=== PATIENT | female | born 2000 | race Caucasian/White ===

== ENCOUNTER 2019-07-16 17:31 | Emergency (ER) | payer SELFPAY ==
--- NOTE | 2019-07-16 18:01 | ED_ITS ---
HPI - URI/Sore Throat General: Chief Complaint: Upper Respiratory Infection Stated Complaint: FEVER, COUGH Time Seen by Provider: 07/16/19 18:01 Source: patient Mode of arrival: ambulatory Limitations: no limitations History of Present Illness: HPI Narrative: Patient comes in for fever and cough. Patient reports that she started getting ill last night. Patient was exposed to influenza A last week at her sister's house. Patient appears mildly unwell. Patient took some DayQuil at 2:00 this afternoon. Patient's 2 young children also started to exhibit symptoms with fever and cough. Associated symptoms: Reports fever(s) Review of Systems General: Reports: 10 or more systems reviewed and unremarkable except in HPI and below Const: Reports: fever Resp: Reports: non-productive cough PFSH ED PFSH: Social History Smoking and tobacco status: current every day smoker Physical Exam Const: COMMON NORMALS: no apparent distress and oriented x3 GENERAL APPEARANCE: cooperative HENMT: COMMON NORMALS: normocephalic, external ears normal, EAC's normal and TM's normal bilaterally HEAD & SCALP: normal to inspection and normocephalic FACE & SINUS: normal facial exam NOSE: nasal discharge clear (mild) GENERAL EAR: hearing not grossly impaired EXTERNAL EAR: Yes external ears normal EXTERNAL AUDITORY CANAL: EAC's normal TYMPANIC MEMBRANE: TM's normal bilaterally MOUTH: oral and palatal mucosa normal THROAT: posterior oropharynx abnormal erythema Eye: COMMON NORMALS: PERRL and EOMs intact bilaterally PUPIL: Yes PERRL Neck/C-Spine: COMMON NORMALS: full ROM and no lymphadenopathy Lymph: LYMPHATIC: no lymphedema noted Chest: COMMONS NORMALS: inspection of chest normal and palpation of chest normal Resp: COMMON NORMALS: normal respiratory effort and clear to auscultation bilaterally AUSCULTATION: clear to auscultation bilaterally Cardio: COMMON NORMALS: regular rate and regular rhythm RATE: regular rate RHYTHM: regular rhythm GI: COMMON NORMALS: normal to inspection, nondistended, normoactive bowel sounds and non-tender : COMMON NORMALS: Yes no CVA tenderness BLADDER/KIDNEY EXAM: Yes no CVA tenderness Back/Pelvis: COMMON NORMALS: no CVA tenderness and thoracic and lumbar spine normal to inspection Extremity: COMMON NORMALS: normal to inspection GENERAL: No edema Neuro: COMMON NORMALS: oriented x3, moves all extremities and no focal motor deficits Psych: COMMON NORMALS: mental status grossly normal and cooperative Skin: COMMON NORMALS: no rashes or lesions noted GENERAL SKIN EXAM: no rashes or lesions noted Course Vital Signs: Vital signs: Vital Signs Temperature 101.5 F H 07/16/19 18:05 Pulse Rate 130 H 07/16/19 18:05 Respiratory Rate 20 H 07/16/19 18:05 Pulse Oximetry 99 07/16/19 18:05 MDM - URI/Sore Throat MDM Narrative: Medical decision making narrative: Patient comes in today for cough and fever. Patient reports symptoms since last night. Patient was exposed to influenza a through the family. Patient appears mildly unwell. Exam notes clear lung sounds, nasal mucosa swollen with clear drainage, posterior pharynx slightly erythematous. Vital signs are notable for elevated pulse and fever. Differential diagnosis influenza, upper respiratory infection, pneumonia, viral syndrome. Influenza test was positive for type A. Reviewed exam with patient with recommendations for treatment and follow-up. Patient reports understanding. Lab Data: Labs: Lab Results 07/16/19 Range/Units 18:11 Influenza Type A A g Positive H (Negative) POC Influenza B Ag Negative (Negative) Discharge Plan Discharge Patient Disposition: Home, Self-Care Clinical Impression: Influenza Condition: Stable Prescriptions: New oseltamivir 75 mg capsule 75 mg PO BID 5 Days Qty: 10 RF: 0 Discharge Orders: Discharge Order (Routine); Ordered 07/16/19 Ordered By: Edvin Cordova Referrals: Charlotte Braun FNP-C [Family Provider] - Discharge Diet: Usual diet Discharge Activity: Increase activity as tolerated Patient Instructions: Influenza (ED) Activity Restrictions/Additional Instructions: Encourage fluids acetaminophen and ibuprofen for pain and fever Follow-up with primary care as needed Return to ER for difficulty breathing or new concerns Coding Level of Care Code ED [employer] Salesperson for Chg Fwd Exam Comprehensive
[2019-07-16 18:05] VITALS: PULSE 130; RESP 20; TEMP 38.6; O2SAT 99; BMI 23.3
[2019-07-16] MEDS: ibuprofen 200 mg Tablet 400 MG PO (18:34)
[2019-07-16 19:12] LABS: Influenza A by IFA Positive (Negative); Influenza B by IFA Negative (Negative)
[2019-07-16 19:22] LABS: Add Urine Microscopic? NO
[2019-07-16 19:26] LABS: Bilirubin Urine Neg (NEGATIVE); Blood Urine Neg (Negative); Glucose Urine UA Norm (Normal); Ketones Urine Negative (Negative); Leukocyte Esterase Urine Negative (Negative); Nitrate Urine Negative (Negative); Protein Urine Neg (Negative); Specific Gravity, Urine 1.005 (1.005-1.030); Urine Appearance Clear (CLEAR); Urine Color Straw (Yellow); Urobilinogen Urine Norm (Negative); pH Urine 5 (5-7)
[2019-07-16 19:49] VITALS: BP 118/64; PULSE 72; RESP 17; TEMP 37.3; O2SAT 96
== END 2019-07-16 19:50 | disposition home or self-care (01) ==
PROVIDERS: Emergency Provider Nurse Practitioner Family; Family Provider Nurse Practitioner Family
DX: J09.X2 Influenza due to identified novel influenza A virus with other respiratory manifestations (principal); F17.200 Nicotine dependence, unspecified, uncomplicated
CPT/HCPCS: 12345; 81003; 87804; 99281; 99282; 99283; A9270

== ENCOUNTER → 2020-01-05 16:02 | Outpatient (BNVA) | payer SELFPAY | PROVIDERS: Family Provider Nurse Practitioner Family; Visit Provider Nurse Practitioner | DX: F41.8 Other specified anxiety disorders (principal) | CPT/HCPCS: 80053; 84443; 85025 ==

== ENCOUNTER 2020-09-13 10:00 | Emergency (ER) | payer SELFPAY ==
[2020-09-13 10:01] VITALS: BP 124/92; PULSE 67; RESP 16; TEMP 36.2; O2SAT 100; BMI 23.3
[2020-09-13 10:06] VITALS: BP 124/92; PULSE 75; RESP 18; O2SAT 100
--- NOTE | 2020-09-13 10:09 | ED_ITS ---
HPI - Eye Problem General: Chief complaint: Eye Problems Stated complaint: eye pain Time Seen by Provider: 09/13/20 10:05 History of Present Illness: HPI Narrative: Patient reports 2 days ago she had an fly get in her left eye. Since then she has had discomfort to the left eye. Patient appears well. Patient appears in no acute distress. Minimal redness or drainage is noted from the left eye. Patient does not wear contacts. MD chief complaint: eye pain Onset (ago): day(s) Onset description: sudden Location: left eye Eye Symptoms: pain Place: home Mechanism: direct trauma Severity: moderate If Pain, Quality: aching Associated symptoms: Reports no associated symptoms Treatments Prior to Arrival: none Review of Systems General: Reports: 10 or more systems reviewed and unremarkable except in HPI and below Eyes: Reports: eye discomfort PFS ED PFSH: Medical History (Updated 09/13/20 @ 10:20 by TIMMY Douglas) Anxiety with depression Surgical History History of section Family History Other Cancer Denies family history of Bleeding disorder Social History Smoking and tobacco status: former smoker Second hand smoke exposure: No Smoking risk assessment/counseling performed?: No Alcohol intake: never Desire information about alcohol rehabilitation?: No Counseling given: No Desire information about substance/drug rehabilitation?: No Counseling given: No Adopted: Yes Caregiver/support person: No Lives independently: No Household members: children Housing: House Marital status: Single Number of children: 2 service: No Current occupational status: employed 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 History of recent travel: No Current gender identity: Female Female Reproductive History: Date of last menstrual period: 09/06/20 Physical Exam Const: COMMON NORMALS: no acute distress and patient oriented x3 GENERAL APPEARANCE: cooperative HENMT: COMMON NORMALS: normocephalic and Normal external nose present HEAD & SCALP: normal to inspection and normocephalic NOSE: Normal external nose present MOUTH: Normal oral and palatal mucosa present Eye: COMMON NORMALS: Equal, round and reactive pupils present and EOMs intact bilaterally PUPIL: Yes Equal, round and reactive pupils present OTHER: Under fluorescein stain patient has a small abrasion to the 3 o'clock position of the left eye outside the iris. No foreign body or other abnormality is noted. Neck/C-Spine: COMMON NORMALS: full ROM Chest: COMMONS NORMALS: normal inspection of the chest Resp: COMMON NORMALS: normal respiratory effort EFFORT & INSPECTION: Yes able to speak in complete sentences Cardio: COMMON NORMALS: regular rate and regular rhythm RATE: regular rate RHYTHM: regular rhythm GI: COMMON NORMALS: non-tender Back/Pelvis: COMMON NORMALS: thoracic and lumbar spine normal to inspection Extremity: COMMON NORMALS: normal to inspection Neuro: COMMON NORMALS: patient oriented x3 and moves all extremities Psych: COMMON NORMALS: mental status grossly normal and cooperative Skin: COMMON NORMALS: no rashes or lesions noted GENERAL SKIN EXAM: no rashes or lesions noted Course Vital Signs: Vital signs: Vital Signs Temperature 97.1 F L 09/13/20 10:01 Pulse Rate 75 09/13/20 10:06 Respiratory Rate 18 09/13/20 10:06 Blood Pressure 124/92 09/13/20 10:06 Pulse Oximetry 100 09/13/20 10:06 MDM - Eye Problem MDM Narrative: Medical decision making narrative: Patient comes in today with complaints of left eye discomfort. On exam we note a small superficial abrasion under fluorescein stain. Rest of the exam was normal. Differential diagnosis includes foreign body, corneal abrasion, conjunctivitis. Reviewed exam with patient with recommendations for follow-up or return to the ER. Patient reported understanding. Discharge Plan Discharge Patient Disposition: Home Clinical Impression: Abrasion, corneal Qualifiers: Encounter type: initial encounter Laterality: left Qualified Code(s): S05.02XA - Injury of conjunctiva and corneal abrasion without foreign body, left eye, initial encounter Condition: Stable Prescriptions: New Maxitrol 3.5mg/mL-10,000 unit/mL-0.1 % drops,suspension 1 drp ophthalmic (eye) QID 5 Days Qty: 5 RF: 0 Discharge Orders: Discharge ED (Routine); Ordered 09/13/20 Ordered By: Edvin Cordova Referrals: Charlotte Braun FNP-C [Family Provider] - Discharge Diet: Usual diet Discharge Activity: Increase activity as tolerated Patient Instructions: Corneal Abrasion (ED), Opioid Safety Activity Restrictions/Additional Instructions: Use eyedrops as directed. He will use antibiotic eyedrop 4 times a day for the next 5 to 7 days. You can use acetaminophen or ibuprofen for further pain relief. Drink plenty of water. Follow-up with primary care or eye healthcare facility administrator in 3 days for recheck. Return to the emergency department for new concerns. Coding Level of Care Code ED Health Education Teacher for Jose Galvan
[2020-09-13] MEDS: fluorescein 1 mg Strip EYE-LEFT (10:18)
[2020-09-13] MEDS: tetracaine 0.5% Op Soln 4 mL Btl 1 DROP EYE-LEFT (10:18)
[2020-09-13 10:30] VITALS: BP 124/92; PULSE 77; RESP 18; O2SAT 97
== END 2020-09-13 10:33 | disposition home or self-care (01) ==
PROVIDERS: Emergency Provider Nurse Practitioner Family; PCP Nurse Practitioner Family
DX: S05.02XA Injury of conjunctiva and corneal abrasion without foreign body, left eye, initial encounter (principal); X58.XXXA Exposure to other specified factors, initial encounter; Z87.891 Personal history of nicotine dependence
CPT/HCPCS: 99282

== ENCOUNTER → 2020-12-01 14:31 | Outpatient (BNVA) | payer OTHER, SELFPAY | PROVIDERS: PCP Nurse Practitioner Family; Visit Provider Nurse Practitioner Family | DX: Z20.822 Contact with and (suspected) exposure to COVID-19 (principal) | CPT/HCPCS: 87635 ==

== ENCOUNTER 2020-12-26 20:04 | Emergency (ER) | payer MEDICAID, SELFPAY ==
[2020-12-26 20:17] VITALS: BP 129/80; PULSE 108; RESP 16; TEMP 36.7; O2SAT 99; BMI 21.6
--- NOTE | 2020-12-26 20:29 | XRR_ITS ---
PROCEDURE INFORMATION: Exam: XR Chest Exam date and time: 12/26/2020 8:29 PM Age: 20 years old Clinical indication: Shortness of breath; Sternal or substernal pain; Additional info: SOB TECHNIQUE: Imaging protocol: XR of the chest. Views: 1 view. COMPARISON: CR Chest 1 [place] [id number] 03/10/2017 11:06 AM FINDINGS: Lungs: Unremarkable. No consolidation. Pleural spaces: Unremarkable. No pleural effusion. No pneumothorax. Heart/Mediastinum: Unremarkable. No cardiomegaly. Bones/joints: Unremarkable. XR/XR chest 1V portable [id number] IMPRESSION: No acute findings.
--- NOTE | 2020-12-26 20:29 | ECG_ITS ---
[facility] Test Date: 2020-12-26 Pat Name: Camille Theodore Department: Room: Gender: Female Body Straightener: : 2000 Requested By: Rajinder Espana Order Number: [id number] Joaquina MD: Nidhi Wasserman M.D. Measurements Intervals [place] Rate: 106 P: 80 [place]: 158 QRS: 53 QRSD: 90 T: 14 QT: 343 QTc: 457 Interpretive Statements SINUS TACHYCARDIA POSSIBLE LEFT ATRIAL ENLARGEMENT [-0.1mV P WAVE IN V1/V2] NONSPECIFIC ST & T-WAVE ABNORMALITY ABNORMAL RHYTHM ECG No previous ECG available for comparison Electronically Signed On 12-29-2020 9:07:36 CDT by Nidhi Wasserman M.D. [id number] f
[2020-12-26 23:53] LABS: Basophils # 0.1 10^3/uL (0.0-0.1); Basophils % 0.6 %; Eosinophils # 0.1 10^3/uL (0.0-0.8); Eosinophils % 1.1 %; Hematocrit 43.9 % (37.0-47.0); Hemoglobin 14.6 g/dL (11.5-15.3); Lymphocytes # 2.5 10^3/uL (0.8-4.8); Lymphocytes % 24.5 %; Mean Corpuscular HGB Conc 33.3 g/dL (30.0-36.0); Mean Corpuscular Hemoglobin 30.6 pg (28.0-34.0); Mean Platelet Volume 9.6 fL (7.4-10.4); Monocytes # 1.2 10^3/uL (0.2-0.9); Monocytes % 12.3 %; Neutrophils # 6.16 10^3/uL (1.8-7.7); Neutrophils % 61.3 %; Nucleated Red Blood Cells % 0 %; Platelet Count 367 10^3/cmm (130-400); Red Blood Count 4.77 10^6/uL (4.1-5.3); Red Cell Distribution Width 13.2 % (12.1-15.1); White Blood Count 10.1 10^3/uL (4.0-10.0)
--- NOTE | 2020-12-26 23:57 | ED_ITS ---
HPI - Chest Pain General: Chief Complaint: Chest Pain Stated Complaint: cp Time Seen by Provider: 12/26/20 23:53 History of Present Illness: HPI narrative: Patient states she has had some pain left side of her chest for years. That is still present and happens on and off. Then she had some pain center of her chest since last night hurts when she swallows. She denies any change in diet. Denies any shortness of breath nausea vomiting diarrhea. Patient had Covid about a month ago. Has not been sick this week. Has not tried any saaz-usz-pajofit medication for this. MD complaint: chest discomfort Onset (ago): day(s) Timing of current episode: episodic Prior episodes: Yes Associated symptoms: Reports abdominal pain; Deny dyspnea, fever(s), nausea or vomiting Review of Systems Const: Denies: fever(s), chills or body aches Eyes: Denies: change in vision or blurry vision ENMT: Denies: throat pain or nasal congestion Card: Reports: chest pain; Denies: dyspnea on exertion Resp: Denies: dyspnea, productive cough or non-productive cough GI: Reports: abdominal pain; Denies: nausea or vomiting Musc: Denies: extremity pain Skin/Breast: Denies: rash Neuro: Denies: headache(s) Psych: Denies: anxiety or depression Shashank/Lymph: Denies: easy bruising PFSH ED PFSH: Medical History (Updated 12/27/20 @ 00:42 by TIMMY Venegas) Anxiety with depression Surgical History History of section Family History Other Cancer Denies family history of Bleeding disorder Social History Smoking and tobacco status: former smoker Second hand smoke exposure: No Smoking risk assessment/counseling performed?: No Alcohol intake: never Desire information about alcohol rehabilitation?: No Counseling given: No Desire information about substance/drug rehabilitation?: No Counseling given: No Adopted: Yes Caregiver/support person: No Lives independently: No Household members: children Housing: House Marital status: Single Number of children: 2 service: No Current occupational status: employed 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 History of recent travel: No Current gender identity: Female Female Reproductive History: Date of last menstrual period: 09/06/20 Physical Exam Const: COMMON NORMALS: no acute distress, average body habitus and patient oriented x3 HENMT: COMMON NORMALS: normocephalic HEAD & SCALP: normal to inspection and normocephalic FACE & SINUS: normal facial exam Eye: COMMON NORMALS: conjunctivae normal GENERAL EYE: appearance normal, both eyes and all related structures CONJUNCTIVA: Yes conjunctivae normal Neck/C-Spine: COMMON NORMALS: no JVD Chest: COMMONS NORMALS: normal inspection of the chest Resp: COMMON NORMALS: normal respiratory effort and clear to auscultation bilaterally AUSCULTATION: clear to auscultation bilaterally Cardio: COMMON NORMALS: no JVD, regular rate and regular rhythm RATE: regular rate RHYTHM: regular rhythm GI: COMMON NORMALS: Normal to inspection, nondistended, normoactive bowel sounds present Extremity: COMMON NORMALS: normal to inspection and full ROM Neuro: COMMON NORMALS: patient oriented x3 Course Vital Signs: Vital signs: Vital Signs Temperature 98.1 F 12/26/20 20:17 Pulse Rate 106 H 12/27/20 00:51 Respiratory Rate 18 12/27/20 00:51 Blood Pressure 113/93 12/27/20 00:51 Pulse Oximetry 98 12/27/20 00:51 MDM - Chest Pain MDM Narrative: Medical decision making narrative: Labs shows UTI. GI cocktail was of benefit. Chest x-ray EKG was negative. Labs appear normal troponin was negative. Patient follow-up primary care provider in 7 days repeat UA. Lab Data: Labs: Lab Results 12/26/20 12/26/20 12/26/20 Range/Units 23:48 23:48 23:48 WBC 10.1 H (4.0-10.0) 10^3/ uL RBC 4.77 (4.1-5.3) 10^6/u L Hgb 14.6 (11.5-15.3) g/dL Hct 43.9 (37.0-47.0) % MCV 92.0 (81-99) fl MCH 30.6 (28.0-34.0) pg MCHC 33.3 (30.0-36.0) g/dL RDW 13.2 (12.1-15.1) % Plt Count 367 (130-400) 10^3/c mm MPV 9.6 (7.4-10.4) fL Neut % (Auto) 61.3 % Lymph % (Auto) 24.5 % Meagher % (Auto) 12.3 % Eos % (Auto) 1.1 % Baso % (Auto) 0.6 % Neut # (Auto) 6.16 (1.8-7.7) 10^3/u L Lymph # (Auto) 2.5 (0.8-4.8) 10^3/u L Meagher # (Auto) 1.2 H (0.2-0.9) 10^3/u L Eos # (Auto) 0.1 (0.0-0.8) 10^3/u L Baso # (Auto) 0.1 (0.0-0.1) 10^3/u L Nucleated RBC % (a uto) 0 % Nucleated RBCs # 0.0 /100WBC D-Dimer 0.16 (0-0.59) ug/mIFE U Sodium 139 (136-145) mmol/L Potassium 4.0 (3.5-5.1) mmol/L Chloride 102 (98-107) mmol/L Carbon Dioxide 24 (22-29) mmol/L Anion Gap 17.0 (5-19) BUN 17 (6-20) mg/dL Creatinine 0.7 (0.5-0.9) mg/dL GFR Calculation 104.6 (90-130) mL/min Glucose 82 (65-115) mg/dL Calculated Osmolal ity 289 (285-295) mOsm/k g Calcium 10.0 (8.5-10.5) mg/dL Total Bilirubin 0.4 (0.15-1.2) mg/dL AST 12 (0-32) U/L ALT < 5 (0-33) U/L Alkaline Phosphata se 91 (35-105) IU/L Troponin T Baselin e (0-10) ng/L NT-Pro-B Natriuret Pep 19 (0-125) pg/mL Total Protein 8.0 (6.6-8.7) g/dL Albumin 4.9 (3.5-5.2) g/dL Globulin 3.1 (1.3-4.6) g/dL Urine Color (Yellow) Urine Appearance (CLEAR) Urine pH (5-7) Ur Specific Gravit y (1.005-1.030) Urine Protein (Negative) Urine Glucose (UA) (Normal) Urine Ketones (Negative) Urine Blood (Negative) Urine Nitrate (Negative) Urine Bilirubin (Negative) Urine Urobilinogen (Negative) mg/dL Ur Leukocyte Cinthia ase (Negative) Urine RBC (0-2) /hpf Urine WBC (0-5) /hpf Ur Squamous Epith Cells (0-5) /hpf Amorphous Sediment Urine Bacteria (NONE) /hpf 12/26/20 12/27/20 Range/Units 23:48 00:09 WBC (4.0-10.0) 10^3/ uL RBC (4.1-5.3) 10^6/u L Hgb (11.5-15.3) g/dL Hct (37.0-47.0) % MCV (81-99) fl MCH (28.0-34.0) pg MCHC (30.0-36.0) g/dL RDW (12.1-15.1) % Plt Count (130-400) 10^3/c mm MPV (7.4-10.4) fL Neut % (Auto) % Lymph % (Auto) % Meagher % (Auto) % Eos % (Auto) % Baso % (Auto) % Neut # (Auto) (1.8-7.7) 10^3/u L Lymph # (Auto) (0.8-4.8) 10^3/u L Meagher # (Auto) (0.2-0.9) 10^3/u L Eos # (Auto) (0.0-0.8) 10^3/u L Baso # (Auto) (0.0-0.1) 10^3/u L Nucleated RBC % (a uto) % Nucleated RBCs # /100WBC D-Dimer (0-0.59) ug/mIFE U Sodium (136-145) mmol/L Potassium (3.5-5.1) mmol/L Chloride (98-107) mmol/L Carbon Dioxide (22-29) mmol/L Anion Gap (5-19) BUN (6-20) mg/dL Creatinine (0.5-0.9) mg/dL GFR Calculation (90-130) mL/min Glucose (65-115) mg/dL Calculated Osmolal ity (285-295) mOsm/k g Calcium (8.5-10.5) mg/dL Total Bilirubin (0.15-1.2) mg/dL AST (0-32) U/L ALT (0-33) U/L Alkaline Phosphata se (35-105) IU/L Troponin T Baselin e 6 (0-10) ng/L NT-Pro-B Natriuret Pep (0-125) pg/mL Total Protein (6.6-8.7) g/dL Albumin (3.5-5.2) g/dL Globulin (1.3-4.6) g/dL Urine Color Yellow (Yellow) Urine Appearance Hazy A (CLEAR) Urine pH 5 (5-7) Ur Specific Gravit y 1.020 (1.005-1.030) Urine Protein Trace (Negative) Urine Glucose (UA) Norm (Normal) Urine Ketones Negative (Negative) Urine Blood Neg (Negative) Urine Nitrate Positive H (Negative) Urine Bilirubin Neg (Negative) Urine Urobilinogen Norm (Negative) mg/dL Ur Leukocyte Cinthia ase 2+ H (Negative) Urine RBC 0-4 H (0-2) /hpf Urine WBC >100 H (0-5) /hpf Ur Squamous Epith Cells 0-4 H (0-5) /hpf Amorphous Sediment Not Reportable Urine Bacteria 4+ H (NONE) /hpf Discharge Plan Discharge Patient Disposition: Home Clinical Impression: Atypical chest pain, Heartburn UTI (urinary tract infection) Qualifiers: Urinary tract infection type: acute cystitis Hematuria presence: without hematuria Qualified Code(s): N30.00 - Acute cystitis without hematuria Condition: Stable Prescriptions: New Bactrim DS 800-160 mg tablet 1 tab PO BID 7 Days Qty: 14 RF: 0 Prilosec OTC 20 mg tablet,delayed release (DR/EC) 20 mg PO DAILY Qty: 20 RF: 0 Discharge Orders: Discharge ED (Routine); Ordered 12/27/20 Ordered By: Phu Donovan Discharge Diet: Usual diet Discharge Activity: Increase activity as tolerated Patient Instructions: Urinary Tract Infection in Women (ED) Activity Restrictions/Additional Instructions: Follow-up with medical provider as directed. Take medications as prescribed. Return to the ER or your medical provider if condition worsens. Please read and understand discharge instructions. If any questions ask please. Coding Level of Care Code ED Motion Picture Camera Lens Technician for Chg Fwd Exam Comprehensive
[2020-12-27 00:04] VITALS: BP 112/75; PULSE 95; O2SAT 100
[2020-12-27 00:10] LABS: Troponin(5th) Baseline 6 ng/L (0-10)
[2020-12-27] MEDS: lidocaine 2% viscous 15 ML, aluminum-mag hydrox-simethicon 30 ML, sucralfate oral liq 1 GM PO (00:14)
[2020-12-27 00:20] LABS: D Dimer 0.16 ug/mIFEU (0-0.59)
[2020-12-27 00:24] LABS: Alanine Aminotransferase < 5 U/L (0-33); Albumin Level 4.9 g/dL (3.5-5.2); Alkaline Phosphatase 91 IU/L (35-105); Aspartate Amino Transferase 12 U/L (0-32); Blood Urea Nitrogen 17 mg/dL (6-20); Carbon Dioxide 24 mmol/L (22-29); Chloride 102 mmol/L (98-107); Globulin 3.1 g/dL (1.3-4.6); Glomerular Filtration Rate 104.6 mL/min (90-130); Glucose 82 mg/dL (65-115); NT Pro B Type Natriuretic Pept 19 pg/mL (0-125); Osmolality Calculated 289 mOsm/kg (285-295); Sodium 139 mmol/L (136-145); Total Bilirubin 0.4 mg/dL (0.15-1.2)
[2020-12-27 00:32] LABS: Add Urine Microscopic? YES; Bilirubin Urine Neg (Negative); Blood Urine Neg (Negative); Glucose Urine UA Norm (Normal); Ketones Urine Negative (Negative); Leukocyte Esterase Urine 2+ (Negative); Nitrate Urine Positive (Negative); Protein Urine Trace (Negative); Urine Appearance Hazy (CLEAR); Urine Color Yellow (Yellow); Urobilinogen Urine Norm (Negative); pH Urine 5 (5-7)
[2020-12-27 00:33] LABS: Add Urine Culture? Yes; Bacteria Urine 4+ /hpf; RBC Urine 0-4 /hpf (0-2); Squamous Epithelial Cell Urine 0-4 /hpf (0-5); WBC Urine >100 /hpf (0-5)
[2020-12-27] MEDS: sulfamethoxazole-trimeth DS 160-800 mg Tablet 1 TAB PO (00:49)
[2020-12-27 00:51] VITALS: BP 113/93; PULSE 106; RESP 18; O2SAT 98
== END 2020-12-27 00:52 | disposition home or self-care (01) ==
PROVIDERS: Emergency Medicine; Emergency Provider Nurse Practitioner Family
DX: R07.89 Other chest pain (principal); R12 Heartburn; N30.00 Acute cystitis without hematuria; Z87.891 Personal history of nicotine dependence
CPT/HCPCS: 36415; 71045; 80053; 81001; 83880; 84484; 85025; 85378; 87077; 87086; 87186; 93005; 99283

== ENCOUNTER 2021-01-29 09:57 | Emergency (ER) | payer MEDICAID, SELFPAY ==
[2021-01-29 10:02] VITALS: BP 114/79; PULSE 71; RESP 18; TEMP 36.7; O2SAT 100; BMI 21.6
--- NOTE | 2021-01-29 10:25 | ECG_ITS ---
[facility] Test Date: 2021-01-29 Pat Name: Camille Theodore Department: Room: Gender: Female Developer Automatic: : 2000 Requested By: Renu Cali Order Number: [id number] Joaquina MD: Hubert Street M.D. Measurements Intervals [place] Rate: 68 P: 68 [place]: 160 QRS: 62 QRSD: 90 T: 44 QT: 374 QTc: 398 Interpretive Statements SINUS RHYTHM WITH SINUS ARRHYTHMIA Compared to ECG 12/26/2020 20:23:27 Sinus tachycardia no longer present T-wave abnormality no longer present Electronically Signed On 01-29-2021 23:23:[address] M.D. [id number]
--- NOTE | 2021-01-29 12:22 | XRR_ITS ---
PROCEDURE INFORMATION: Exam: XR Chest Exam date and time: 01/29/2021 12:22 PM Age: 20 years old Clinical indication: Pain; Chest pressure; Additional info: Cp TECHNIQUE: Imaging protocol: XR of the chest. Views: 1 view. COMPARISON: CR (CHEST, ) 12/26/2020 8:39 PM FINDINGS: Lungs: Unremarkable. No consolidation. Pleural spaces: Unremarkable. No pleural effusion. No pneumothorax. Heart/Mediastinum: Unremarkable. No cardiomegaly. Bones/joints: Unremarkable. XR/XR chest 1V portable [id number] IMPRESSION: No acute findings. Radiation Dose CTDIVOL = (mGy): DLP = (mGy-cm)
[2021-01-29 12:29] VITALS: BP 108/78; PULSE 78; RESP 16; O2SAT 99
--- NOTE | 2021-01-29 12:36 | W.ED.GENADLT ---
HPI - General Adult General: Chief complaint: General Medical Stated complaint: FEELS LIKE HEART NOT BEATING RIGHT Time Seen by Provider: 01/29/21 12:21 Source: patient Mode of arrival: ambulatory Limitations: no limitations History of Present Illness: HPI narrative: 20-year-old female states of last 3 to 4 days she been having episodes where she feels like her heart is skipping a beat. States it was worse overnight states that her heart rate just feels irregular to her. She denies any chest pain denies any shortness of breath denies any worsening improving factors. Associated symptoms: Reports palpitations; Deny dyspnea, headache(s), nausea, rash or vomiting Review of Systems Const: Denies: fever(s), chills, body aches or change in appetite Eyes: Denies: blurry vision or eye discomfort ENMT: Denies: throat pain or dental pain Card: Reports: palpitations and irregular heart rhythm Resp: Denies: dyspnea GI: Denies: abdominal pain, nausea, vomiting or diarrhea : Denies: dysuria Musc: Denies: neck pain or back pain Skin/Breast: Denies: rash Neuro: Denies: headache(s) Psych: Denies: depression Shashank/Lymph: Denies: easy bruising All/Imm: Denies: urticaria PFSH ED PFSH: Medical History (Updated 01/29/21 @ 13:00 by Rajinder Espana MD) Anxiety with depression Surgical History History of section Family History Other Cancer Denies family history of Bleeding disorder Social History Smoking and tobacco status: former smoker Second hand smoke exposure: No Smoking risk assessment/counseling performed?: No Alcohol intake: never Desire information about alcohol rehabilitation?: No Counseling given: No Desire information about substance/drug rehabilitation?: No Counseling given: No Adopted: Yes Caregiver/support person: No Lives independently: No Household members: children Housing: House Marital status: Single Number of children: 2 service: No Current occupational status: employed 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 History of recent travel: No Current gender identity: Female Female Reproductive History: Date of last menstrual period: 01/03/21 Physical Exam Const: COMMON NORMALS: no acute distress, patient oriented x3 and healthy appearing HENMT: COMMON NORMALS: normocephalic and atraumatic HEAD & SCALP: normocephalic and atraumatic Eye: COMMON NORMALS: Equal, round and reactive pupils present and EOMs intact bilaterally PUPIL: Yes Equal, round and reactive pupils present Neck/C-Spine: COMMON NORMALS: full ROM and supple Chest: COMMONS NORMALS: normal inspection of the chest and normal palpation of entire chest wall Resp: COMMON NORMALS: normal respiratory effort, No retractions, No use of accessory muscles and clear to auscultation bilaterally AUSCULTATION: clear to auscultation bilaterally Cardio: COMMON NORMALS: regular rate, regular rhythm and No murmurs present (Cardio) RATE: regular rate RHYTHM: regular rhythm GI: COMMON NORMALS: Normal to inspection, nondistended, normoactive bowel sounds present, Soft to palpation, non-tender and no masses PALPATION: Yes Soft to palpation Extremity: COMMON NORMALS: normal to inspection and full ROM Neuro: COMMON NORMALS: patient oriented x3, moves all extremities and no focal motor deficits Psych: COMMON NORMALS: mental status grossly normal, Normal thought process present and cooperative THOUGHT PROCESS: Normal thought process present Skin: COMMON NORMALS: no rashes or lesions noted and no wounds GENERAL SKIN EXAM: no rashes or lesions noted Course Vital Signs: Vital signs: Vital Signs Temperature 98.1 F 01/29/21 10:02 Pulse Rate 78 01/29/21 12:29 Respiratory Rate 16 01/29/21 12:29 Blood Pressure 108/78 01/29/21 12:29 Pulse Oximetry 99 01/29/21 12:29 MDM - General Adult MDM Narrative: Medical decision making narrative: Patient presents here with palpitations and is well-appearing here EKG and x-ray here are normal. We will set her up with follow-up she likely needs a heart monitor. EKG Data^: EKG 1: Attestation: I personally reviewed and interpreted this EKG as follows: EKG interpretation date: 01/29/21 EKG interpretation time: 10:10 Interpretation: nsr hr [address] or t wave abnormalities qrs 90 qtc 391 Discharge Plan Discharge Patient Disposition: Home Clinical Impression: Heart palpitations Condition: Stable Prescriptions: No Action Prilosec OTC 20 mg tablet,delayed release (DR/EC) 20 mg PO DAILY Qty: 20 RF: 0 Discharge Orders: Discharge ED (Routine); Ordered 01/29/21 Ordered By: Rajinder Espana Discharge Diet: Advance as tolerated Discharge Activity: Resume usual activity Patient Instructions: Heart Palpitations (ED) Coding Level of Care Code ED Technical Sales Associate for Jose Galvan
--- NOTE | 2021-01-31 11:39 | DCPLANNER ---
planning and analysis manager had message to speak with patient about getting established with a primary care physician. planning and analysis manager called patient, she stated that she did want help in getting a primary care physician. planning and analysis manager called ALEX Malik, spoke with Rosibel, gave clinic patients information. A follow up appointment is scheduled for , February 02, 2021 at 2:20 with PROGRAMMING DIRECTORNickolas. planning and analysis manager called patient and gave her the appointment information.
--- NOTE | 2021-02-10 13:21 | DCPLANNER ---
Patient had an appointment scheduled for 02.02.21 at the [facility] - patient did attend appointment.
== END 2021-01-29 13:24 | disposition home or self-care (01) ==
PROVIDERS: Emergency Provider Emergency Medicine
DX: R00.2 Palpitations (principal); Z87.891 Personal history of nicotine dependence
CPT/HCPCS: 71045; 93005; 99282

== ENCOUNTER → 2021-02-02 14:56 | Outpatient (BNVA) | payer MEDICAID, SELFPAY | PROVIDERS: PCP Nurse Practitioner; Visit Provider Nurse Practitioner | DX: R00.2 Palpitations (principal) | CPT/HCPCS: 84443 ==

== ENCOUNTER → 2021-04-03 15:09 | Outpatient (BNVA) | payer MEDICAID, SELFPAY | PROVIDERS: PCP Nurse Practitioner; Visit Provider Nurse Practitioner Family | DX: R51.9 Headache, unspecified (principal) | CPT/HCPCS: 36415; 80053; 84443; 85025 ==

== ENCOUNTER → 2023-04-29 09:47 | Outpatient (BNVA) | payer MEDICAID, SELFPAY | PROVIDERS: PCP Nurse Practitioner; Visit Provider Nurse Practitioner Women's Health | DX: Z32.00 Encounter for pregnancy test, result unknown (principal) | CPT/HCPCS: 80307; 81025; 84315; 84443; 85025; 86592; 86762; 86803; 86850; 86900; 87086; 87340; 87491; 87591; 87806 ==

== ENCOUNTER → 2023-04-30 15:35 | Outpatient (BNVA) | payer MEDICAID, SELFPAY | PROVIDERS: PCP Nurse Practitioner; Visit Provider Nurse Practitioner Women's Health | DX: Z34.90 Encounter for supervision of normal pregnancy, unspecified, unspecified trimester (principal) | CPT/HCPCS: 87491; 87591 ==

== ENCOUNTER → 2023-05-06 11:15 | Outpatient (BNVA) | payer MEDICAID, SELFPAY | PROVIDERS: PCP Nurse Practitioner; Visit Provider Obstetrics & Gynecology | DX: Z3A.25 25 weeks gestation of pregnancy (principal); O09.30 Supervision of pregnancy with insufficient antenatal care, unspecified trimester | CPT/HCPCS: 82950; 84315 ==

== ENCOUNTER → 2023-05-16 11:40 | Outpatient (BNVA) | payer MEDICAID, SELFPAY | PROVIDERS: PCP Nurse Practitioner; Visit Provider Nurse Practitioner Women's Health | DX: Z36.87 Encounter for antenatal screening for uncertain dates (principal) | CPT/HCPCS: 76805 ==

== ENCOUNTER → 2023-07-16 08:22 | Outpatient (BNVA) | payer MEDICAID, SELFPAY | PROVIDERS: PCP Nurse Practitioner; Visit Provider Obstetrics & Gynecology | DX: Z3A.25 25 weeks gestation of pregnancy (principal); Z34.82 Encounter for supervision of other normal pregnancy, second trimester | CPT/HCPCS: 84315; 87081 ==

== ENCOUNTER 2023-08-11 13:13 | Inpatient (IN) | payer MEDICAID, SELFPAY ==
[2023-08-11] VITALS (69 sets, daily range): BP systolic 90–236; BP diastolic 50–158; PULSE 68–131; TEMP 36.1–36.2; O2SAT 96–100; BMI 27.7
[2023-08-11 14:07] LABS: Basophils % 0.3 %; Eosinophils # 0.1 10^3/uL (0.0-0.8); Eosinophils % 0.4 %; Hematocrit 35.9 % (36-47); Lymphocytes # 1.9 10^3/uL (0.8-4.8); Lymphocytes % 13.8 %; Mean Corpuscular HGB Conc 34.3 g/dL (30-55); Mean Corpuscular Hemoglobin 30.8 pg (27-33); Mean Corpuscular Volume 89.8 fl (85-98); Mean Platelet Volume 10.4 fL (7.4-10.4); Monocytes # 0.9 10^3/uL (0.2-0.9); Monocytes % 6.3 %; Neutrophils # 10.85 10^3/uL (1.8-7.7); Neutrophils % 78.6 %; Nucleated Red Blood Cells % 0 %; Platelet Count 282 10^3/cmm (157-399); Red Cell Distribution Width 14.3 % (12.1-15.1); White Blood Count 13.81 10^3/uL (3.29-11.43)
[2023-08-11] MEDS: calcium carbonate 500 mg Chew Tablet 1000 MG PO (16:25)
--- NOTE | 2023-08-11 18:45 | PM.OPHPUD ---
Labor & Delivery H&P Update Date of Procedure: August 12, 2023 Date H&P Performed: 08/06/23 H&P update information: I have reviewed H&P completed within last 30 days, I have examined patient prior to procedure and Changes to prior documentation as noted here (6/50%/-4/VX/IM) Admission Diagnosis: Preop diagnosis: labor pains
[2023-08-11] MEDS: lactated ringers 1,000 ML 999 ML IV ×2 (21:31→22:29)
--- NOTE | 2023-08-11 22:03 | P.ANESASSM_ITS ---
Pre-Anesthetic Assessment Height/Weight: Height 1.68 m Weight 78.018 kg Temp Pulse BP O2 Del Method 97.0 F L 83 144/84 Room Air 08/11/23 21:16 08/11/23 21:48 08/11/23 21:48 08/11/23 18:20 Preop Diagnosis: labor pains epidural Was Beta Daly taken within 24 hours: N/A Was Clonidine taken within 24 hours: N/A Exam alert, oriented x 3, clear to auscultation bilaterally and regular rate & rhythm Airway Submandibular: within normal limits Cervical ROM: within normal limits Mallampati: Class II Dentition: full Pulmonary None reported CV/HEM None reported None reported Hepatic None reported GI Gastroesophageal Reflux Disease Metabolic None reported Musc/skel None reported Neuropsych Anxiety and Depression Anesthetic Plan ASA status: 2 Anesthesia: Regional (specify below) Risk of > 500 ml blood loss (7ml/kg in children): No Medications/Allergies Home Medications Medication Instructions Recorded Confirmed Last Taken Type dourmxckjtnmb-AR-lfaazodnpwoez-guaif 10 ml PO TID PRN cough #180 mL 06/17/23 08/11/23 Unknown Rx 10 mg-20 mg-650 mg/20 mL oral liq (Mucinex Cold,Flu and Sore Throat) Allergies Allergy/AdvReac Type Severity Reaction Status Date / Time No Known Allergies Allergy Verified 08/06/23 14:12 Current Medications Generic Name Dose Route Start Last Admin Trade Name Freq PRN Reason Stop Dose Admin Calcium Carbonate 1,000 mg 08/11/23 13:59 08/11/23 16:25 Calcium Carbonate 500 Mg Chew Tablet PO 1,000 mg Q4H PRN Administration Heartburn/Indigestion (Use 1st) Lactated Ringer's 1,000 mls @ 999 mls/hr 08/11/23 13:59 08/11/23 21:31 Lactated Ringers IV 999 mls/hr .Q1H1M PRN Administration Per L&D Rescitation Protocol [facility] Anesthesia Medical History Anxiety with depression Surgical History History of section Family History Denies family history of Colon cancer Ovarian cancer Prostate cancer Diabetes Heart disease Hyperlipidemia Breast cancer Bleeding disorder Hypertension Uterine cancer Thyroid disease Stroke Female Reproductive History : 4 Data Anesthesia 08/11/23 13:30 Short CBC 08/11/23 Range/Units 13:30 WBC 13.81 H (3.29-11.43) 10^3/uL Hgb 12.30 (11.27-16.99) g/dL Hct 35.9 L (36-47) % MCV 89.8 (85-98) fl Plt Count 282 (157-399) 10^3/cmm Neut % (Auto) 78.6 % Neut # (Auto) 10.85 H (1.8-7.7) 10^3/uL Blood Bank 08/11/23 13:30 Blood Type O Positive Rho(D) Type Rh positive Antibody Screen Negative Cardiac Studies: 2 No Data to Display
[2023-08-11] MEDS: ROPivacaine syringe 100 MG/50 ML SYRINGE 13 MG EPIDURAL (22:21)
--- NOTE | 2023-08-11 22:32 | P.ANES_ITS ---
Anesthesia Procedures Procedure/Date: 08/11/23 epidural Procedure Narrative: epidural complete, bolus given, epidural pump initiated with [employer] education given, vitals taken during procedure and satisfactory throughout, patient admits to decrease pain, report of procedure to OB RN Epidural: Time Out Performed: Yes Consents Signed: Procedure Consent Consent: requested by attending/covering physician, from patient, risks and benefits reviewed and patient agrees to proceed Lumbar Level: L3-L4 Ep idural position: sitting Epidural procedure: sterile prep of area, 1% lidocaine to numb the area (3 mL), 18 g needle, negative for paresthesia passed, neg for paresthesia, test dose given, 1.5% xylocaine 1:200k epi (5 mL), 0.2% Ropivacaine bolus ml (5 mL), placed PCEA, no systemic response, sterile dressing applied, L.U.D. no apparent complications and 0.2% Ropiavacaine @ mls/hr (13 mL/hr)
[2023-08-12] VITALS (58 sets, daily range): BP systolic 104–144; BP diastolic 55–85; PULSE 72–125; RESP 16–18; TEMP 36.1–36.8; O2SAT 96–100
[2023-08-12] MEDS: ondansetron 2 mg/ML SDV 2 mL 4 MG IVP ×2 (00:22→04:59)
[2023-08-12] MEDS: ROPivacaine syringe 100 MG/50 ML SYRINGE 13 MG EPIDURAL (00:56)
[2023-08-12] MEDS: lactated ringers 1,000 ML 999 ML IV (03:23)
--- NOTE | 2023-08-12 03:58 | PM.DELIVERY ---
Delivery Note: Date of delivery: August 12, 2023 Pre-delivery diagnoses: Term Previous delivery Post-delivery diagnoses: Term delivered Vaginal after Procedure: Spontaneous vaginal delivery after Delivering Physician: Ivan Hurtado MD Estimated blood loss (mL): 300 Findings: Compound presentation Delivery: The patient was noted to be complete and pushing, so was placed in the dorsal lithotomy position, prepped and draped in the usual sterile fashion for a vaginal delivery. Pt. Noted to have epidural anesthesia. At 0348 the patient delivered a viable term male weighing 4080 g with scores of 8 and 9 at one and five minutes, respectively. The vertex was delivered spontaneously over intact perineum. The patient was asked to push and the head delivered spontaneously in the RAFAL position, over an intact perineum. A nuchal cord was checked and none noted. The anterior shoulder delivered easily and the posterior shoulder followed. The remainder of the was easily delivered and the oropharynx and nasopharynx was bulb suctioned. The was noted to have spontaneous cry and spontaneous movement of all four extremities. The cord was clamped x 2 and cut and noted to have 2 arteries and one vein. The infant was passed to the mother's abdomen where nursing personnel were in attendance. Cord blood sample was then obtained. The placenta delivered intact spontaneously and the uterus was explored. 20 units of Pitocin was placed in the IV bag follow with Methergine injection to firm the uterus. Examination of the cervix and vaginal vault did not reveal any lacerations. Examination of the perineum showed no lacerations. The patient tolerated this procedure well, and recovered in L&D with her infant in their LDR room. All sponge and needle counts were correct. Post-Delivery Status: Good and stable History History History 4 Term 2 0 Miscarriages/Ectopic 1 Living Children 2 Coding Level of Care Code Acute Code for Chg Fwd
[2023-08-12] MEDS: methylergonovine 0.2 mg/mL INJ 1 mL 0.200000000000000011 MG IM (04:04)
[2023-08-12] MEDS: carboprost tromethamine 250 mcg/mL Amp IM (04:15)
[2023-08-12] MEDS: miSOPROStol 200 mcg Tablet 800 MCG PR (04:29)
[2023-08-12] MEDS: tranexamic acid 1,000 MG/100 ML PREMIX 600 MG IV (04:50)
[2023-08-12] MEDS: loperamide 2 mg Capsule 4 MG PO ×2 (04:56→06:37)
--- NOTE | 2023-08-12 05:26 | PC.NURSE ---
Patient vomited up imodium capsules three minutes after taking. RN observed two whole pills in emesis.
[2023-08-12] MEDS: acetaminophen 325 mg Tablet 650 MG PO (06:38)
--- NOTE | 2023-08-12 07:45 | PC.NURSE ---
At 0400 it was noted that patient had a steady trickle of lochia. Fundal assessment found it to be mostly firm with some areas firm with massage. 1 above U. Trickle did not decrease with fundal massage. Bryant updated at 0403 and received an orders for methergine. Administered at 0404. Lochia continued to trickle. Dr. Hurtado updated, came to bedside, and ordered hemabate. Admininstered at 0415. Trickle continued with fundal massage. Dr. Huratdo updated at 0423 and order given for cytotec. Administered at 0429. Updated Bryant on continued trickle at 0435 and requested a bedside assessment. Bryant lomeli. Bryant at bedside at 0449. Did assessment of vagina and uterus. Lochia small to scant at this time. TXA ordered and given. Lochia continued to to small throughout recovery.
[2023-08-12] MEDS: ibuprofen 800 mg tablet PO ×2 (09:45→20:52)
[2023-08-12] MEDS: PRENATAL VIT NO.130/IRON/FOLIC 1 EACH TABLET PO (09:45)
--- NOTE | 2023-08-12 14:54 | ANE.PACU2 ---
Inpatient post-anesthesia follow up: Airway intact: Yes Vital signs: Temperature 98.2 F Pulse Rate 80 Respiratory Rate 18 Blood Pressure 120/75 Pulse Oximetry 100 Oxygen Delivery Me thod Room Air Oxygen Flow Rate Fraction of Inspir ed Oxygen Hydration adequate: Yes Nausea and vomiting: No Pain level: 1 Mental status: Baseline Epidural Start/End: Epidural Start Date: 08/11/23 Epidural Start Time: 23:13 Epidural End Date: 08/12/23 Epidural End Time: 05:48
[2023-08-12 16:20] LABS: Hematocrit 31.2 % (36-47); Mean Corpuscular HGB Conc 34.6 g/dL (30-55); Mean Corpuscular Hemoglobin 31.8 pg (27-33); Mean Corpuscular Volume 91.8 fl (85-98); Mean Platelet Volume 10.5 fL (7.4-10.4); Platelet Count 248 10^3/cmm (157-399); Red Cell Distribution Width 14.5 % (12.1-15.1)
[2023-08-12] MEDS: docusate sodium 100 mg Capsule PO (20:52)
[2023-08-13] MEDS: ibuprofen 800 mg tablet PO (09:15)
[2023-08-13] MEDS: PRENATAL VIT NO.130/IRON/FOLIC 1 EACH TABLET PO (09:15)
[2023-08-13] MEDS: docusate sodium 100 mg Capsule PO (09:15)
--- NOTE | 2023-08-13 09:23 | P.DS_ITS ---
Discharge Providers WINDOW TRIMMER APPRENTICE Date of Admission: 08/11/23 13:13 Date of Discharge: 08/13/23 Attending Provider at Admission: Ivan Hurtado MD Attending Provider at Discharge: Ivan Hurtado MD Primary WINDOW TRIMMER APPRENTICE: Jaycob De La Paz MD Primary Care Provider: RICARDO Lange Reason for Visit Reason for Visit: contractions Hospital Course Hospital Course Mrs. Pierre 22-year-old female G4, P2 120 stational age at 39 weeks +6 days came to labor and delivery in active labor. OB history significant for previous delivery but she desired a . She progressed to have a spontaneous vaginal delivery complicated what mild hemorrhage for which she was treated with Methergine, Hemabate and Cytotec. She delivered 10 male infant with a birthweight of 4080 g GERD 11/28. observation was uneventful. She is alert and oriented day 1. Tolerating diet well. Ambulating w ithout difficulty. She was counseled regarding pelvic rest for 6 weeks (no sex, no tampons, no vaginal douches). Return to the emergency room if any fever, increased bleeding or pain. Information Peripartum Data: Delivery Method: Vaginal Physical Exam Narrative: GA; alert and oriented x 3 HEENT: normal Breasts: engorged Nipples - skin intact Lungs; clear to auscultation Heart: regular rhythm, no murmurs. Abd: Appropriately tender. BS+. Uterine fundus below umbilicus. No Fundal Tenderness. Perineum: normal lochia. Extremities: no edema, no cyanosis, no tenderness. Urinary Catheter Management: Keenan: Cath Placed During This Visit: yes, but has since been removed by the nurse Reason for Continuing Indwelling Catheter: Decision to DC Catheter Urinary Catheter Date of Insertion: 08/11/23 Urinary Catheter Time of Insertion: 23:03 Date Urinary Catheter Removed: 08/12/23 Time Urinary Catheter Discontinued: 02:30 History History History 4 Term 2 0 Miscarriages/Ectopic 1 Living Children 2 Discharge Data Studies Completed and Pending Laboratory Results WBC 18.30 10^3/uL (3.29-11.43) H 08/12/23 15:53 RBC 3.40 10^6/uL (3.85-5.65) L 08/12/23 15:53 Hgb 10.80 g/dL (11.27-16.99) L 08/12/23 15:53 Hct 31.2 % (36-47) L 08/12/23 15:53 MCV 91.8 fl (85-98) 08/12/23 15:53 MCH 31.8 pg (27-33) 08/12/23 15:53 MCHC 34.6 g/dL (30-55) 08/12/23 15:53 RDW 14.5 % (12.1-15.1) 08/12/23 15:53 Plt Count 248 10^3/cmm (157-399) 08/12/23 15:53 MPV 10.5 fL (7.4-10.4) H 08/12/23 15:53 Neut % (Auto) 78.6 % 08/11/23 13:30 Lymph % (Auto) 13.8 % 08/11/23 13:30 [place] % (Auto) 6.3 % 08/11/23 13:30 Eos % (Auto) 0.4 % 08/11/23 13:30 Baso % (Auto) 0.3 % 08/11/23 13:30 Neut # (Auto) 10.85 10^3/uL (1.8-7.7) H 08/11/23 13:30 Lymph # (Auto) 1.9 10^3/uL (0.8-4.8) 08/11/23 13:30 [place] # (Auto) 0.9 10^3/uL (0.2-0.9) 08/11/23 13:30 Eos # (Auto) 0.1 10^3/uL (0.0-0.8) 08/11/23 13:30 Baso # (Auto) 0.0 10^3/uL (0.0-0.1) 08/11/23 13:30 Nucleated RBC % (auto) 0 % 08/11/23 13:30 Nucleated RBCs # 0.0 /100WBC 08/11/23 13:30 Blood Type O Positive 08/11/23 13:30 Rho(D) Type Rh positive 08/11/23 13:30 Antibody Screen Negative 08/11/23 13:30 Vitals Last Vital Signs Temp 97.7 F 08/12/23 22:35 Pulse 98 08/12/23 22:35 Resp 16 08/12/23 22:35 BP 110/71 08/12/23 22:35 Pulse Ox 96 08/12/23 22:35 O2 Del Method Room Air 08/12/23 22:35 Results Labs OB ([facility]): Blood Type O Positive 08/11/23 Antibody Screen Negative 08/11/23 Hct 31.2 % (36-47) L 08/12/23 Hgb 10.80 g/dL (11.27-16.99) L 08/12/23 Rho(D) Type Rh positive 08/11/23 Plt Count 248 10^3/cmm (157-399) 08/12/23 Hep Bs Antigen Non-reactive (Nonreactive) 04/29/23 Hepatitis C Antibody Non-reactive (Nonreactive) 04/29/23 Rubella IgG Antibody 120.8 IU/mL (0.0-10.0) H 04/29/23 RPR Nonreactive (Nonreactive) 04/29/23 HIV 1&2 Ab & HIV 1 Ag Non-reactive (Non-Reactiv) 04/29/23 TSH 1.08 uIU/mL (0.27-4.20) 04/29/23 C.trachomatis RNA (TMA) Not detected 04/30/23 N.gonorrhoeae RNA (TMA) Not detected 04/30/23 T. vaginalis Amp RNA Not detected 04/30/23 Chlamydia/GC Comment TNP 04/30/23 Glucose 1 Hr 50 gm 106 mg/dL (85-140) 05/06/23 HCG, Qual Positive (Negative) H 04/29/23 Urine Opiates Screen Negative ng/mL (Negative) 04/29/23 Ur Barbiturates Screen Negative ng/mL (Negative) 04/29/23 Ur Phencyclidine Scrn Negative ng/mL (Negative) 04/29/23 Ur Amphetamines Screen Negative ng/mL (Negative) 04/29/23 U Benzodiazepines Scrn Negative ng/mL (Negative) 04/29/23 Urine Cocaine Screen Negative ng/mL (Negative) 04/29/23 U Marijuana (THC) Screen Positive ng/mL (Negative) H Micro Urine Specimen 04/29/23 Discharge Plan Discharge Patient Disposition: Home Condition: Stable Prescriptions: New ibuprofen 800 mg tablet 800 mg PO TID PRN (Reason: pain) Qty: 60 0RF acetaminophen 325 mg capsule 325 mg PO Q4H PRN (Reason: fever or pain) Qty: 60 0RF docusate sodium [Colace] 100 mg capsule 100 mg PO BID Qty: 60 0RF ferrous sulfate [Iron (ferrous sulfate)] 325 mg (65 mg iron) tablet 325 mg PO BID Qty: 60 0RF Continued Mucinex Cold,Flu,Sore Throat 10-20-650 mg/20 mL liquid 10 ml PO TID PRN (Reason: cough) Qty: 180 0RF Discharge Orders: Discharge Order (Routine); Ordered 08/13/23 Ordered By: Ivan Hurtado Referrals: Jaycob De La Paz MD [Physician] - 6 Weeks Discharge Diet: Usual diet Discharge Activity: Limit activity as instructed Patient Instructions: Opioid Safety, Vaginal Delivery (GEN), Choosing Between Vaginal After () or Repeat... (GEN), Caring for Your Baby (GEN), Your Guys's Appearance (GEN) Activity Restrictions/Additional Instructions: 1. Please call [facility] on next working day to make your appointment in 6 weeks. 2. Please stay home until you come back to the clinic on first post- hospatilization check up. 3. Please follow instructions on your medications CAREFULLY. 4. If you have abdominal incision, do not cover it unless dressing is necessary because of drainage. OK to shower, but avoid bath. Leave steri-strips until they fall off. If they are still on one week after surgery, you may remove them. 5. If you had vaginal surgery or vaginal repair, Dr. Hurtado may instruct you to take SITZ bath. 6. Yellow, blood tinged odorous vaginal discharge is usually normal after hysterectomy or vaginal surgeries. 7. No SEXUAL INTERCOURSE, tampons, or douches until you are completely released from the post-operative care. 8. Avoid constipation by eating right and maybe using some Metamucil or Milk of Magnesia. 9. All prescription refills are given during the working hours. Please do no wait till it runs out. Call the clinic at [phone] before your medication runs out. The clinic will get in touch with your doctor to prescribe medications if necessary. 10. Please remain within 40 mile radius from our hospital because emergencies do happen now and then during the post-operative period. 11. If you have stairs at home, take one step at a time slowly and minimize the number of trips. It helps to stay in one floor for the next few days. No lifting except what you can lift by one hand until you are released from the post-operative care. 12. Driving is discouraged until you are well healed. It may be 3-4 weeks before you feel strong enough to drive. You should be able to turn and look through the rear window without pain and you should be able to push the brake pedal very hard without pain before you drive. No fast rules, but SAFETY should be your primary concern. DO NOT drive if you are on sedating medications such as narcotics. 13. Call the clinic (during working hours) to make urgent appointment or go to the Emergency room, if any of the following occurs: i. Vaginal bleeding becomes heavy, more than a period. ii. Incision becomes red and sore, or drains pus. iii. Your TEMPERATURE is over 100.4F or you have chill. iv. IV site becomes red and swollen (a little ``knot?? is usually OK) v. Persistent nausea and vomiting vi. Persistent constipation or diarrhea vii. Rash or allergic reaction to medications. Discharge Attestations WINDOW TRIMMER APPRENTICE Time Spent in Discharge Care*: greater than 30 min Coding Level of Care Code Acute Code for Chg Fwd
[2023-08-13 10:29] VITALS: BP 114/76; PULSE 90; TEMP 36.6
== END 2023-08-13 11:12 | disposition home or self-care (01) | DRG 806 ==
LOC: OPOB 13:14 → OBGYN 13:14
PROVIDERS: Admitting Provider Obstetrics & Gynecology; PCP Nurse Practitioner; Visit Provider Obstetrics & Gynecology
DX: O34.211 Maternal care for low transverse scar from previous cesarean delivery (principal); O72.1 Other immediate postpartum hemorrhage; Z37.0 Single live birth; N85.8 Other specified noninflammatory disorders of uterus; Z3A.39 39 weeks gestation of pregnancy
CPT/HCPCS: 36415; 51702; 59025; 59409; 85025; 85027; 86850; 86900; 96372; 96374; 96376; 99211; J2210; J2405; J2795; J7120

== ENCOUNTER → 2023-09-18 14:32 | Outpatient (BNVA) | payer MEDICAID, SELFPAY | PROVIDERS: PCP Nurse Practitioner; Visit Provider Nurse Practitioner Family | DX: R30.0 Dysuria (principal) | CPT/HCPCS: 81000; 87077; 87086; 87184 ==

== ENCOUNTER → 2024-12-29 16:08 | Outpatient (BNVA) | payer MEDICAID, SELFPAY | PROVIDERS: PCP Nurse Practitioner; Visit Provider Nurse Practitioner Women's Health | DX: Z12.4 Encounter for screening for malignant neoplasm of cervix (principal) | CPT/HCPCS: 87624 ==